=== PATIENT | male | born 1950 | race Caucasian/White ===

== ENCOUNTER 2017-05-23 09:13 | Inpatient (IN) | payer MEDICARE ==
[~2017-05-23] VITALS: Ht 180.3 cm; Wt 74.0 kg
[~2017-05-23 09:13] MED LIST: ALBU8.5H3 INH; DOCU-30 PO; PRED5TAB PO; TIOT18CA INH
[2017-05-23] MEDS ORDERED: MORPHINE SULFATE 4 MG/ML, 1ML IVPush PRN (13:00)
[2017-05-23] MEDS ORDERED: SODIUM CHLORIDE FLUSH 10ML SYR IVF PRN (13:00)
[2017-05-23] MEDS ORDERED: ONDANSETRON 2MG/ML, 2ML IVPush PRN ×2 (13:00→15:30)
[2017-05-23 14:30] VITALS: BP 108/72
[2017-05-23] MEDS ORDERED: MORP30TA81 PO (14:49)
[2017-05-23] MEDS ORDERED: LORA2ORA2 PO (14:49)
[2017-05-23] MEDS ORDERED: PRED10TA PO (14:49)
[2017-05-23] MEDS ORDERED: SENN8.6T12 PO (14:49)
[2017-05-23] MEDS ORDERED: ATRO10DR PO (14:49)
[2017-05-23] MEDS ORDERED: ALBU90AE INH (14:49)
[2017-05-23] MEDS ORDERED: MORP10SY4 PO (14:49)
[2017-05-23] MEDS ORDERED: DOCU-30 PO (14:49)
[2017-05-23] MEDS ORDERED: MORP10SY2 PO (14:58)
[2017-05-23] MEDS ORDERED: PROMETHAZINE 25 MG/ML, 1ML IM PRN (15:30)
[2017-05-23] MEDS ORDERED: SENNOSIDES 8.6 MG TABLET PO PRN (15:30)
[2017-05-23] MEDS ORDERED: HYDROcodone/APAP 5/325 TABLET PO PRN (15:30)
[2017-05-23] MEDS ORDERED: MORPHINE SULFATE PO PRN (15:30)
[2017-05-23] MEDS ORDERED: DOCUSATE 100 MG CAPSULE PO PRN (15:30)
[2017-05-23] MEDS ORDERED: ENOXAPARIN 40 MG/0.4 ML SQ SCH (15:30)
[2017-05-23] MEDS ORDERED: ATROPINE OPHTH SOLN 1%, 2ML PO PRN (15:30)
[2017-05-23] MEDS: ALBUTEROL/IPRATROPIUM 2.5MG/0.5MG, 3 ML NPPB PRN ×2 (16:25→21:44)
[2017-05-23 19:10] VITALS: BP 106/69
[2017-05-23] MEDS: DOCUSATE 100 MG CAPSULE PO SCH (21:08)
[2017-05-23] MEDS: morphine SULFATE ORAL.CONC 20 MG/ML PO PRN ×2 (21:08→21:55)
[2017-05-23] MEDS: LORazepam INTENSOL 2 MG/ML PO PRN (22:14)
[2017-05-24 01:33] VITALS: BP 103/65
[2017-05-24] MEDS: LORazepam INTENSOL 2 MG/ML PO PRN ×2 (04:42→12:15)
[2017-05-24] MEDS: morphine SULFATE ORAL.CONC 20 MG/ML PO PRN ×2 (04:42→11:15)
[2017-05-24] MEDS: ALBUTEROL/IPRATROPIUM 2.5MG/0.5MG, 3 ML NPPB PRN (05:15)
[2017-05-24 06:39] VITALS: BP 96/66
[2017-05-24] MEDS: DOCUSATE 100 MG CAPSULE PO SCH (08:23)
[2017-05-24] MEDS ORDERED: FLUTICASONE/VILANTEROL 200-25MCG/INH INH SCH (09:00)
[2017-05-24 12:47] VITALS: BP 87/57
== END 2017-05-24 12:59 | disposition short-term general hospital (02) | DRG 535 ==
LOC: ED 12:32 → EDIP 12:35 → ED 12:51 → 4NOR 13:55
PROVIDERS: ADMIT Internal Medicine; ATTEND Internal Medicine
DX: S72.144A Nondisplaced intertrochanteric fracture of right femur, initial encounter for closed fracture (principal); G92 Toxic encephalopathy; J96.10 Chronic respiratory failure, unspecified whether with hypoxia or hypercapnia; Z99.81 Dependence on supplemental oxygen; J44.1 Chronic obstructive pulmonary disease with (acute) exacerbation; W18.39XA Other fall on same level, initial encounter; Z51.5 Encounter for palliative care; Z66 Do not resuscitate; Z79.52 Long term (current) use of systemic steroids; Z91.013 Allergy to seafood; Z91.09 Other allergy status, other than to drugs and biological substances; Y93.89 Activity, other specified; Y92.128 Other place in nursing home as the place of occurrence of the external cause; Y99.8 Other external cause status
CPT/HCPCS: 94640; J1650; J7620